=== PATIENT | female | born 1965 | race Caucasian/White ===

== ENCOUNTER 2017-12-08 13:59 | Emergency (ER) | payer MEDICARE, OTHER ==
[2017-12-08] MEDS ORDERED: cloNIDine HCL 0.1 MG TAB ONE (14:14)
[2017-12-08] MEDS ORDERED: cloNIDine HCL 0.1 MG TAB PO ONE (14:30)
[2017-12-08] MEDS ORDERED: KETOROLAC TROMETH 60MG/2ML VIAL IM ONE (16:15)
[2017-12-08 16:33] VITALS: BP 165/88
== END 2017-12-08 18:16 | disposition home or self-care (01) ==
LOC: ER 13:59
DX: R22.0 Localized swelling, mass and lump, head (principal); T65.91XA Toxic effect of unspecified substance, accidental (unintentional), initial encounter; I10 Essential (primary) hypertension; Y92.89 Other specified places as the place of occurrence of the external cause
CPT/HCPCS: 96372; 99283; J1885